=== PATIENT | male | born 1945 | race Caucasian/White ===

== ENCOUNTER 2018-08-28 10:11 | Outpatient (CLI) | payer MEDICARE, BC ==
--- NOTE | 2018-08-28 12:13 | CT ---
CT ANGIOGRAM CHEST WITH CONTRAST: Date: 08/28/18 HISTORY: 73-year-old male with: ICD-10: I77.89 other specified disorders of arteries and arterials. Enlarged aortic root found at Dr. Herrera's office. History of atrial fibrillation. TECHNIQUE: IV injection of 100 mL [id number]. Arterial bolus chasing technique timed for maximum contrast density in the thoracic aorta. Scan perfo rmed through entire thoracic cavity. Sagittal and coronal 3D MIP reconstructions. FINDINGS: No pleural effusion or pneumothorax. No consolidation or pulmonary edema. A 0.5 x 0.3 cm left upper l obe nodule with broad base against left pleural surface, either at lingula or anterior segment (image 69 of 139, series 3). A 0.6 x 0.4 x 0.5 cm pulmonary nodule in anterior segment of right upper lobe close to the anterolate ral pleural surface (axial image 46 of 139, series 3; coronal image 40 of 151, series 400). Aortic root diameter is 5.4 x 5.2 cm at the aortic cusp level. Slightly superior to that, the caliber of the proximal ascending aorta is approximately 3.9 x 3.9 cm. Aortic arch caliber is 3.3 cm. Descending thoracic aorta caliber is 3.1 cm. No aortic dissection. No mediastinal or hilar lymphadenopathy. No cardiomegaly, pleural effusion, pneumothorax, or pericardial effusion. Both of the small bilateral pleural nodules mentioned above are unchanged since 05/23/11, and therefo re definitely benign. The aortic root measurement is also unchanged since 05/23/11. IMPRESSION: 1. Ectasia of thoracic aorta. 2. No acute or aggressive findings. 3. No significant interval change since 05/23/11. POS: [facility]
== END 2018-08-28 10:12 | disposition home or self-care (01) ==
LOC: CT 10:11
PROVIDERS: ATTEND Internal Medicine Cardiovascular Disease
DX: I77.89 Other specified disorders of arteries and arterioles (principal); I77.810 Thoracic aortic ectasia
CPT/HCPCS: 71275

== ENCOUNTER 2020-07-13 08:12 | Outpatient (CLI) | payer MEDICARE, BC ==
[2020-07-13] MEDS ORDERED: Iopamidol-370 76% 500 ML 1 ML ONE (14:08)
--- NOTE | 2020-07-14 09:29 | CT ---
CTA CHEST: INDICATION: Thoracic aortic aneurysm followup. COMPARISON: 08/28/2018. FINDINGS: There is aneurysmal dilatation of the aortic root. Diameter at the sinus of Valsalva is measured at 5.2 cm. This is stable from the 08/28/2018 exam. The sinotubular diameter today is measured at 3.2 cm which is within normal range for a male patient. The ascending aorta is measured at 3.8 cm which is mildly aneurysmal. Upper descending thoracic aorta measured 2.8 cm, which is ectatic. The aorta shows mild atherosclero tic change. The thoracic aorta appears stable from 08/28/2018. Review of lung del rio again reveals a 5 mm nodule in the right upper lobe. A small 4-5 mm pleural-based nodule in the left upper lobe is again noted. These nodular densities are stable. Tiny calcified nodule measuring 3 mm in the poste rior right lung base is again noted. Mediastinum otherwise unremarkable. No adenopathy. Images through the upper abdomen unremarkable. Osseous structures show mild degenerative spine change. 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 Dimensions are given above. The aorta appears stable from 08/28/2018. POS: [facility]
== END 2020-07-13 08:13 | disposition home or self-care (01) ==
LOC: BICCT 08:12
PROVIDERS: ATTEND Internal Medicine Cardiovascular Disease
DX: I77.810 Thoracic aortic ectasia (principal)
CPT/HCPCS: 71275; 82565; Q9967